=== PATIENT | female | born 1975 | race Hispanic/Latino ===

== ENCOUNTER → 2021-08-15 | Outpatient (CLI) | payer BC | LOC: MAMMO 08:39 | PROVIDERS: ATTEND Obstetrics & Gynecology | DX: Z12.31 Encounter for screening mammogram for malignant neoplasm of breast (principal) | CPT/HCPCS: 77067 ==

== ENCOUNTER → 2024-02-01 | Outpatient (REF) | payer BC | LOC: MAMMO 12:13 | PROVIDERS: ATTEND Obstetrics & Gynecology | DX: Z12.31 Encounter for screening mammogram for malignant neoplasm of breast (principal) | CPT/HCPCS: 77067 ==

== ENCOUNTER → 2024-04-20 | Outpatient (REF) | payer BC | LOC: US 10:12 | PROVIDERS: ATTEND Obstetrics & Gynecology | DX: R92.2 Inconclusive mammogram (principal) ==